=== PATIENT | male | born 1995 | race Caucasian/White ===

== ENCOUNTER 2024-03-01 18:33 | Emergency (ER) | payer MEDICAID, SELFPAY ==
[2024-03-01 18:35] VITALS: BP 134/84; PULSE 57; RESP 14; TEMP 36.4; O2SAT 98; BMI 31.4
--- NOTE | 2024-03-01 19:58 | EDS_ITS ---
HPI HPI - Psych History of Present Illness Chief Complaint: Suicidal Informant: patient and friend Onset/Context/Timing Timing: Intermittent Narrative Narrative: 28-year-old with history of depression and anxiety has been feeling worse and states that he was contemplating suicide last night, he is here with significant other and a friend and they are supporting him and trying to get him help. Does not see a counselor or take any mental health medications. Does not have any other major medical problems. States last night he was contemplating killing himself with a self-inflicted gunshot wound and he does have access to guns that he owns. He states he has been drinking heavily every day for the last 2 weeks. Prior to that not every day. He states it has been some days a 12 pack of beer, other times a 1/5 of liquor. He states his last drink was this morning, it currently is a p.m., and he does not feel shaky or nauseated or confused. He has had no jaundice. No abdominal pain. No hematemesis or melena. [facility] Medical History (Updated 03/01/24 @ 21:[address] Rei Gutierrez MD) Anxiety Depression Medical History no medical history Home Medications ?Medication ?Instructions ?Recorded ?Last Taken ?Type NK 03/01/24 Unknown History Allergy/AdvReac Type Severity Reaction Status Date / Time No Known Allergies Allergy Verified 03/01/24 18:38 Family History no significant family his Surgical History no surgical history Social History Smoking Status: Current every day smoker tobacco type: cigarettes ROS ROS ED Constitutional Constitutional ED: Denies chills or fever(s) Eyes Eyes: Denies change in vision or diplopia ENT ENT ED: Denies rhinorrhea or sore throat Cardiovascular Cardiovascular: Denies chest pain or palpitations Respiratory/Chest Respiratory/Chest: Denies cough or dyspnea Gastrointestinal Gastrointestinal: Denies abdominal pain, diarrhea, melena, nausea or vomiting Genitourinary Genitourinary ED: Denies dysuria or hematuria Musculoskeletal Musculoskeletal: Denies back pain or neck pain Integumentary Denies abscess or rash Neurologic Neurologic: Denies headache(s), paresthesias or weakness Psychiatric Psychiatric: Reports anxiety, depression, suicidal ideation and suicidal thoughts; Denies homicidal ideation EXAM Physical Exam Const Vital Signs: 03/01/24 18:35 Temperature 97.6 F L Temperature Source Temporal Pulse Rate 57 L Respiratory Rate 14 Blood Pressure 134/84 H Blood Pressure Mean 100 Pulse Ox 98 Positive well nourished and well developed General Appearance ED: well developed and NAD HEENT Reports moist mucous membranes normocephalic and atraumatic Eyes PERRL and EOMs intact bilaterally General Eye ED: Negative for scleral icterus Neck no lymphadenopathy and supple Resp normal respiratory effort and clear to auscultation bilaterally Cardio no murmurs Rate: regular rate Rhythm: regular rhythm GI non-tender and non-distended Auscultation: normoactive bowel sounds Palpation: soft Back/Spine no CVA tenderness and normal ROM Extremity normal to inspection General Extremety ED: Negative for edema General Extremity: Negative for edema Neuro oriented x3, CN's II-XII intact bilaterally, no sensory deficits noted and gait normal Sensorium / Orientation: alert Motor Exam: strength 5/5 throughout Psych mental status grossly normal, thought process normal, cooperative, activity/motor behavior normal and denies homicidal ideation Attitude: calm Activity / Motor Behavior: appropriate eye contact Speech: normal speech Mood & Affect: depressed Thought Content: suicidality Attention / Concentration: attention grossly intact Memory / Cognition: memory grossly intact Insight: insight good Skin General Skin Exam: Negative for jaundice Lesions: no lesions Rashes: no rashes MDM MDM MDM Narrative Medical decision making narrative: Labs noted. Alcohol is negative, he is not in withdrawal clinically, and his vital signs are normal. Positive for marijuana otherwise drug screen negative. He is medically cleared for psychiatric evaluation. I wrote up a pink slip, I suspect he will need emergent transfer/placement for further psychiatric evaluation and treatment. Lab Data Attestation: I reviewed the patient's lab results. Labs: Laboratory Results - last 24 hr 03/01/24 03/01/24 19:45 20:15 WBC 6.0 RBC 5.46 Hgb 15.7 Hct 45.0 MCV 82.4 MCH 28.8 MCHC 34.9 RDW Std Deviation 37.2 RDW Coeff of Tyrese 12.4 Plt Count 147 L MPV 10.9 Immature Gran % (Auto) 0.300 Neut % (Auto) 58.9 Lymph % (Auto) 29.8 [place] % (Auto) 8.5 Eos % (Auto) 2.0 Baso % (Auto) 0.5 Absolute Neuts (auto) 3.5 Absolute Lymphs (auto) 1.78 Nucleated RBC % 0 PT 13.1 INR 1.0 Sodium 141 Potassium 3.4 L Chloride 109 H Carbon Dioxide 24.0 Anion Gap 8 BUN 10 Creatinine 0.81 Estim Creat Clear Calc 161.86 Est GFR (MDRD) Af Amer 147 Est GFR (MDRD) Non-Af 121 BUN/Creatinine Ratio 12.4 Glucose 94 Calcium 9.0 Total Bilirubin 0.60 AST 17 ALT 24 Alkaline Phosphatase 64 Total Protein 7.3 Albumin 3.7 Globulin 3.6 Albumin/Globulin Ratio 1.0 Urine Opiates Screen NEGATIVE Urine Methadone Screen NEGATIVE Ur Barbiturates Screen NEGATIVE Ur Phencyclidine Scrn NEGATIVE Ur Amphetamines Screen NEGATIVE MDMA (Ecstasy) Screen NEGATIVE U Benzodiazepines Scrn NEGATIVE Urine Cocaine Screen NEGATIVE U Cannabinoids Screen POSITIVE H Ur Drug Screen Comment Ethyl Alcohol < 3.0 Discharge Plan Triage Chief Complaint: Suicidal Other Complaint: Depression ED Provider: Rei Gutierrez Dx/Rx/DC Orders Clinical Impression: Suicidal ideation Prescriptions: No Action NK Primary Care Provider: Care Physician,No Primary Referrals: Care Physician,No Primary [Primary Care Provider] - Print Language: Amharic Disposition Disposition: Psychiatric Hospital or Unit
[2024-03-01 20:11] LABS: Absolute Lymphocyte Count 1.78 X10^3/uL (0.83-4.51); Absolute Neutrophil Count 3.5 X10^3/uL (2.0-7.7); Basophil# 0.03 X10^3/uL; Basophil% 0.5 % (0-1); Eosinophil# 0.12 X10^3/uL; Hemoglobin 15.7 g/dL (13.0-16.5); Lymphocyte # 1.78 X10^3/ul (0.83-4.51); Lymphocyte % 29.8 % (19-41); Mean Corp Hgb Conc 34.9 g/dL (32-36); Mean Corpuscular Hgb 28.8 pg (27.0-32.0); Mean Corpuscular Volume 82.4 fL (80-94); Mean Platelet Vol. 10.9 fl (6.2-12.0); Monocyte# 0.51 X10^3/uL; Monocyte% 8.5 % (0-10); NRBC Flagged by Analyzer 0 % (0-5); Neutrophil # 3.51 X10^3/uL (2.7-7.7); Neutrophil % 58.9 % (47-70); Platelet Count 147 K/mm3 (150-450); RBC Distribution Width CV 12.4 % (11.6-14.6); RBC Distribution Width SD 37.2 fl (35.1-43.9); Red Blood Count 5.46 M/mm3 (4.6-6.2)
[2024-03-01 20:28] LABS: Amphetamine Urine VISTA NEGATIVE (<1000 ng/mL); Barbiturate Urine VISTA NEGATIVE (< 200 ng/mL); Benzodiazepine Urine VISTA NEGATIVE (< 200 ng/mL); Cocaine Urine VISTA NEGATIVE (< 300 ng/mL); Ecstacy Urine VISTA NEGATIVE (< 500 ng/mL); Methadone Urine VISTA NEGATIVE (< 300 ng/mL); PCP Urine VISTA NEGATIVE (< 25 ng/mL); THC Urine VISTA POSITIVE (< 50 ng/mL); Vista UDS pH Range 5
[2024-03-01 20:40] LABS: Prothrombin Time (Protime)PT. 13.1 SECONDS (11.7-14.9)
[2024-03-01 20:44] LABS: Alcohol, Blood (Medical)-Serum < 3.0 mg/dL
[2024-03-01 20:57] LABS: AST(SGOT) 17 U/L (15-37); Alanine Aminotransfer ALT/SGPT 24 U/L (16-61); Albumin, Serum 3.7 g/dL (3.2-5.0); Alkaline Phosphatase 64 U/L (45-117); Anion Gap 8 (5-15); BUN 10 mg/dL (7-18); BUN/Creat Ratio 12.4 RATIO (10-20); Chloride 109 mmol/L (98-107); Creatinine, Serum 0.81 mg/dL (0.70-1.30); EST Glomerular Filtration Rate 121 mL/min (>60); Est Glom Filt Rate - Afr Amer 147 mL/min (>60); Estimated Creatinine Clearance 161.86 ml/min; Globulin 3.6 g/dL (2.2-4.2); Glucose 94 mg/dL (74-106); Potassium 3.4 mmol/L (3.5-5.1); Protein, Total 7.3 g/dL (6.4-8.2); Sodium Level 141 mmol/L (136-145)
[2024-03-02 04:00] VITALS: BP 122/63; PULSE 50; RESP 18; TEMP 36.9; O2SAT 94
[2024-03-02] MEDS: Potassium Chloride Oral Tablet 20 MEQ PO (04:22)
[2024-03-02 08:52] VITALS: BP 124/63; PULSE 63; RESP 15; TEMP 36.4; O2SAT 99
--- NOTE | 2024-03-02 08:58 | ED.RN ---
CALLED AND LEFT A MESSAGE AT [facility]
== END 2024-03-02 09:03 ==
PROVIDERS: Emergency Provider Emergency Medicine; Visit Provider Emergency Medicine
DX: R45.851 Suicidal ideations (principal); F41.9 Anxiety disorder, unspecified; F17.210 Nicotine dependence, cigarettes, uncomplicated; F32.9 Major depressive disorder, single episode, unspecified
CPT/HCPCS: 36415; 80053; 80307; 82077; 85025; 85610; 99284